=== PATIENT | male | born 1985 | race American Indian/Alaskan Native ===

== ENCOUNTER 2017-07-19 18:03 | Emergency (ER) | payer BC, OTHER ==
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
[2017-07-19] MEDS ORDERED: Morphine 4 MG/ML Syringe IVPUSH ONE (18:42)
[2017-07-19] MEDS ORDERED: Ondansetron 4 MG/2 ML SDV IVPUSH ONE (18:42)
[2017-07-19] MEDS ORDERED: Sodium Chloride 0.9% 1,000 ML IV ONE (18:43)
[2017-07-19] MEDS ORDERED: Sodium Chloride 0.9% 10 ML Syringe FLUSH PRN (18:56)
[2017-07-19] MEDS ORDERED: Iopamidol 612 MG/ML 150 ML Bottle IVPUSH ONE (18:56)
--- NOTE | 2017-07-21 08:34 | CT ---
CT cervical spine Technique: Multiple axial sections were obtained from above C1 inferiorly to the mid T2 level. Reconstructed sagittal and coronal images were reviewed. Comparison: No prior cervical spine imaging. Findings: Vertebral body heights and disc spaces are maintained. Minimal degenerative spurring noted off the left uncovertebral joint at C4-C5. More prominent osteophyte noted off the left uncovertebral joint at C6-C7. Vertebral bodies and posterior arches are intact. No fracture is seen. Posterior skull base is intact. No bony central or bony neural foraminal stenosis is seen. No abnormal subluxation is seen. Impression: 1. Slight degenerative change within the left uncovertebral joints as noted above. 2. Nothing acute is identified on CT study of the cervical spine. Diagnostic code #2 I agree with preliminary report issued by [facility] ([facility] report finalized on 07/19/17, 8:36 PM Central Time)
--- NOTE | 2017-07-21 08:34 | CR ---
Left forearm: Two views of the left forearm were obtained. Comparison: No prior forearm study. No fracture or other bony abnormality is seen. Mild soft tissue swelling appears to be present. Impression: 1. Mild soft tissue swelling. 2. No acute bony abnormality is identified. Diagnostic code #2
--- NOTE | 2017-07-21 08:34 | CT ---
Head CT Technique: Multiple axial sections through the brain were obtained. Intravenous contrast was not utilized. Comparison: No previous intracranial imaging. Findings: Ventricles along with basal cisterns and sulci over the convexities are within normal limits for the patient's age. No abnormal parenchymal densities are seen. No evidence of intracranial hemorrhage. No midline shift or mass effect is seen. Mild soft tissue swelling seen within the left frontal scalp. Bone window settings were reviewed which show no acute calvarial abnormality. There is mucosal thickening seen within a portion of the anterior right ethmoid sinus with opacification of the right frontal sinus. Impression: 1. Mild sinus findings as noted above which are likely chronic. 2. Mild soft tissue swelling within the left frontal scalp. 3. No acute intracranial abnormality is identified. Diagnostic code #3 I agree with preliminary report issued by [facility] ([facility] report finalized on 07/19/17, 8:27 PM Central Time)
--- NOTE | 2017-07-21 08:34 | CT ---
CT chest Technique: Multiple axial sections through the chest were obtained. Intravenous contrast was utilized. Comparison: No previous chest imaging. Findings: Mediastinum and hilar regions appear within normal limits. Opacified great vessels appear within normal limits. Incidental note of persistent left superior vena cava which is a normal variant. No pericardial thickening is seen. Lungs are clear. No pulmonary contusion is seen. No pleural effusions or pneumothorax is identified. Bone window settings were reviewed which show no discrete rib fracture. Thoracic spine shows no compression deformities. Reconstructed sagittal sternal views appear within normal limits. Impression: 1. No acute abnormality is seen on CT study of the chest. Diagnostic code #2 I agree with preliminary report issued by [employer] ([facility] report finalized on 07/19/17, 8:57 PM Central Time) CT abdomen and pelvis Technique: Multiple axial sections were obtained from above the dome of the diaphragm inferiorly through the pubic symphysis. Intravenous contrast was utilized. No oral contrast has been given. Comparison: No prior abdominal imaging. Findings: Liver shows no focal parenchymal abnormality. Spleen appears within normal limits. Adrenal glands show no nodule. Pancreas is within normal limits. Gallbladder shows no calcified gallstones. Kidneys show symmetric contrast enhancement and appear unremarkable. Aorta shows no aneurysmal dilatation. No retroperitoneal adenopathy or mesenteric abnormalities are seen. Previous bowel surgery is noted. No pelvic mass or adenopathy is seen. Left sided abdominal wall hernia is identified. This contains fat. Small right inguinal hernia also noted containing fat. Delayed images show contrast within the distal ureters and within the bladder. Bone window settings were reviewed which show nothing acute within the lumbar spine or within the pelvis. Impression: 1. Left fat containing abdominal wall hernia and small fat-containing right inguinal hernia. 2. No additional abnormality is identified on CT study of the abdomen and pelvis. Diagnostic code #2 I agree with preliminary report issued by [employer] ([facility] report finalized on 07/19/17, 8:57 PM Central Time)
--- NOTE | 2017-07-21 08:34 | CR ---
Right elbow: Four views of the right elbow were obtained. Comparison: No prior elbow exam. Joint spaces are maintained. No fracture, dislocation or other bony abnormality is seen. No joint effusion is identified. Impression: 1. No abnormality is identified on right elbow study. Diagnostic code #1
== END 2017-07-19 21:23 | disposition home or self-care (01) ==
LOC: JD.ED 18:03
DX: S50.11XA Contusion of right forearm, initial encounter (principal); S50.12XA Contusion of left forearm, initial encounter; S00.03XA Contusion of scalp, initial encounter; S00.83XA Contusion of other part of head, initial encounter; S20.211A Contusion of right front wall of thorax, initial encounter; S60.512A Abrasion of left hand, initial encounter; S60.511A Abrasion of right hand, initial encounter; Y04.0XXA Assault by unarmed brawl or fight, initial encounter
CPT/HCPCS: 36415; 70450; 71260; 72125; 73080; 73090; 74177; 80053; 81001; 83690; 85025; 85610; 86850; 86900; 86901; 96361; 96374; 96375; 99285; G0480; J2270; J2405; J7040; J7050; Q9967; 99284

== ENCOUNTER 2017-07-20 10:26 | Emergency (ER) | payer BC, OTHER ==
[2017-07-20] MEDS ORDERED: Ondansetron 4 MG/2 ML SDV IVPUSH ONE (10:44)
[2017-07-20] MEDS ORDERED: Sodium Chloride 0.9% 1,000 ML IV ONE (10:44)
[2017-07-20] MEDS ORDERED: Sodium Chloride 0.9% 10 ML Syringe FLUSH PRN (10:44)
[2017-07-20] MEDS ORDERED: Ketorolac 30 MG/ML SDV IVPUSH ONE (10:51)
[2017-07-20] MEDS ORDERED: LORazepam 2 MG/ML MDV IVPUSH ONE (10:51)
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
== END 2017-07-20 12:35 | disposition home or self-care (01) ==
LOC: JD.ED 10:26
DX: G44.319 Acute post-traumatic headache, not intractable (principal); E86.0 Dehydration; S06.0X9D Concussion with loss of consciousness of unspecified duration, subsequent encounter; R11.2 Nausea with vomiting, unspecified; F17.210 Nicotine dependence, cigarettes, uncomplicated; Y04.0XXD Assault by unarmed brawl or fight, subsequent encounter
CPT/HCPCS: 36415; 80053; 83690; 85025; 96361; 96374; 96375; 99284; J1885; J2060; J2405; J7040; J7050

== ENCOUNTER 2017-07-22 09:03 | Emergency (ER) | payer BC, OTHER ==
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
[2017-07-22] MEDS ORDERED: Lactated Ringers 1,000 ML IV ONE (10:27)
--- NOTE | 2017-07-22 10:54 | CT ---
CT cervical spine Technique: Multiple axial sections were obtained from above C1 inferiorly to the bottom of T2. Reconstructed sagittal and coronal images were reviewed. Comparison: Prior cervical spine CT exam of 07/19/17. Findings: Vertebral body heights and disc spaces are maintained. Vertebral bodies and posterior arches are intact. No fracture is seen. No bony central or bony neural foraminal stenosis is seen. Posterior skull base is intact. Kyphosis present on the reconstructed sagittal images. Slight degenerative spurring is noted within the uncovertebral joints at C6-7 on the left side as well as minimal spurring at C4-5 on both sides. Impression: 1. Minimal degenerative change. 2. Kyphosis which is most likely positional. 3. Nothing acute is identified on CT study of the cervical spine. Diagnostic code #2
--- NOTE | 2017-07-22 10:56 | CT ---
Head CT Technique: Multiple axial sections through the brain were obtained. Intravenous contrast was not utilized. Comparison: Prior head CT study of 07/19/17. Findings: Ventricles along with basal cisterns and sulci over the convexities are within normal limits for the patient's age. No abnormal parenchymal densities are seen. No evidence of intracranial hemorrhage. No midline shift or mass effect is seen. Soft tissue material is seen within the anterior right ethmoid sinus and frontal sinus which is stable from prior study most likely representing mild chronic sinusitis. Bone window settings were reviewed which shows no acute calvarial abnormality. Impression: 1. Sinus finding which is stable from prior exam and likely representing pre-existing chronic sinusitis. 2. No acute intracranial abnormality is appreciated. Diagnostic code #2
[2017-07-22] MEDS ORDERED: Ondansetron 4 MG Tab.DIS PO ONE (11:30)
== END 2017-07-22 14:55 | disposition home or self-care (01) ==
LOC: JD.ED 09:03
DX: F07.81 Postconcussional syndrome (principal); F17.210 Nicotine dependence, cigarettes, uncomplicated
CPT/HCPCS: 36415; 70450; 72125; 80048; 83735; 84443; 93005; 93225; 93226; 96361; 99285; A9270; J7120; 96374; 99284

== ENCOUNTER 2021-06-05 19:28 | Emergency (ER) | payer BC, OTHER ==
[2021-06-05] MEDS ORDERED: Sodium Chloride 0.9% 1,000 ML IV STA (19:51)
[2021-06-05] MEDS ORDERED: Ondansetron 4 MG/2 ML SDV IVPUSH ONE (19:51)
[2021-06-05] MEDS ORDERED: Sodium Chloride 0.9% 10 ML Syringe FLUSH PRN (19:51)
[2021-06-05] MEDS ORDERED: HYDROmorphone 1 MG/ML Syringe IVPUSH ONE ×2 (19:53→21:32)
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
[2021-06-05] MEDS ORDERED: HYDROmorphone 1 MG/ML Syringe ONE (21:33)
--- NOTE | 2021-06-06 07:55 | US ---
Testicular ultrasound: Multiple real-time images of the testicles were obtained. Comparison: No prior testicular imaging is available. Numerous small echogenic areas are seen within both testicles which are compatible with bilateral microlithiasis. No focal intratesticular abnormality is otherwise seen. Heterogeneous right-sided epididymis is seen which is somewhat hypervascular likely representing epididymitis. Small cyst is seen within the epididymal head measuring up to 0.4 cm which is felt to be benign. Small amount of fluid is seen around the right testicle. Small cyst is also noted within the left epididymal head measuring up to 6 mm. Arterial and venous blood flow are seen within both testicles. Measurements: Right testicle: 3.8 x 2.6 x 3.1 cm Left testicle: 4.6 x 2.1 x 3.3 cm Impression: 1. Findings suspicious for epididymitis within the tail on the right side. 2. Bilateral diffuse testicular microlithiasis. Follow-up of this finding is somewhat controversial although annual ultrasound could be obtained to completely rule out development of testicular cancer. 3. Small epididymal cysts on both sides. Small amount of fluid is seen around the right tesicle. Diagnostic code #3 I agree with preliminary report from [facility] finalized on 06/05/21, 9:48 PM CDT, code 1
== END 2021-06-05 22:20 | disposition home or self-care (01) ==
LOC: JD.ED 19:28
DX: N45.1 Epididymitis (principal); N50.89 Other specified disorders of the male genital organs
CPT/HCPCS: 36415; 76870; 80053; 83690; 85025; 93975; 96374; 96375; 96376; 99285; J1170; J2405; J7030

== ENCOUNTER 2022-01-29 20:14 | Emergency (ER) | payer OTHER ==
[2022-01-29] MEDS ORDERED: HYDROmorphone 1 MG/ML Syringe IVPUSH ONE (20:43)
[2022-01-29] MEDS ORDERED: Sodium Chloride 0.9% 10 ML Syringe FLUSH PRN (20:44)
[2022-01-29] MEDS ORDERED: Ondansetron 4 MG/2 ML SDV IVPUSH ONE (20:44)
[2022-01-29 22:16] LABS: ESTIMATED GFR > 60 mL/min (>60)
== END 2022-01-29 22:33 | disposition home or self-care (01) ==
LOC: JD.ED 20:14
DX: N49.2 Inflammatory disorders of scrotum (principal); N50.812 Left testicular pain; F17.210 Nicotine dependence, cigarettes, uncomplicated; Z79.899 Other long term (current) drug therapy
CPT/HCPCS: 36415; 76870; 80053; 85025; 86140; 93975; 96374; 96375; 99284; J1170; J2405; J3490